=== PATIENT | male | born 1960 | race Caucasian/White ===

== ENCOUNTER 2023-08-16 16:32 | Emergency (ER) | payer BC, SELFPAY ==
[2023-08-16 16:53] LABS: #Basophils 0.1 thou/uL (0.0-0.2); #Lymphocytes 0.8 thou/uL (1.20-3.40); #Monocytes 0.7 thou/uL (0.11-0.59); #Neutrophils 3.1 thou/uL (1.40-6.50); %Basophils 2.1 % (0.0-1.0); %Eosinophils 0.5 % (0.0-10.0); %Lymphocytes 17.9 % (21.0-51.0); %Monocytes 13.9 % (0.0-10.0); %Neutrophils 65.7 % (42.0-75.0); Hematocrit 40.2 % (42.0-52.0); Hemoglobin 13.7 g/dL (14.0-18.0); Mean Corpuscular Hemoglobin 31.2 pg (27.0-31.0); Mean Corpuscular Volume 91.8 fl (78.0-98.0); Mean Platelet Volume 7.5 fL (7.4-10.4); Platelet Count 146 10x3/uL (130-400); RBC Distribution Width 11.5 % (11.5-14.5); Red Blood Cell (RBC) Count 4.38 mill/uL (4.70-6.10); White Blood Cell (WBC) Count 4.7 10x3/uL (4.8-10.8)
[2023-08-16 17:15] LABS: ALT (SGPT) 119 U/L (8-55); AST (SGOT) 103 U/L (5-34); Albumin 4.1 g/dL (3.4-4.8); Alcohol 281.2 mg/dL (Less than 10); Alkaline Phosphatase 112 U/L (40-110); Anion Gap 22 mmol/L (10-20); BUN (Urea Nitrogen) 4 mg/dL (8.4-25.7); Bilirubin, Total 0.7 mg/dL (0.2-1.2); CK (CPK) 108 U/L (30-200); Calc. Creatinine Clearance 0 mL/min (70-130); Calcium 8.6 mg/dL (7.8-10.44); Carbon Dioxide 17 mmol/L (23-31); Chloride 94 mmol/L (98-107); Estimated GFR 106; Globulin 3.6 g/dL (2.4-3.5); Glucose 88 mg/dL (80-115); Lipase 66 U/L (8-78); Magnesium 2.1 mg/dL (1.6-2.6); Protein, Total 7.7 g/dL (5.8-8.1); Sodium 129 mmol/L (136-145)
[2023-08-16 17:19] LABS: Bilirubin Negative (Negative); Blood, Urine Trace (Negative); Clarity Clear (Clear); Glucose, Urine (Dipstick) Negative (Negative); Ketone, Urine Negative (Negative); Leukocyte Negative (Negative); Nitrite Negative (Negative); Protein, Urine (Dipstick) Negative (Neg-Trace); Urobilinogen 0.2 mg/dL (Less than 2); pH, Urine 5.5 (5.0-9.0)
[2023-08-16 17:28] LABS: Bacteria/HPF None Seen HPF (None Seen); CAUTI Indications for Culture Alt mental st,lethar; RBC/HPF 0-3 HPF (0-3); Squamous Epithelial None Seen HPF (0-3); WBC/HPF None Seen HPF (0-3)
[2023-08-16 17:30] LABS: Urine Culture Reflex No No
[2023-08-16] MEDS ORDERED: Lorazepam 2 MG/ML VIAL ONE (19:11)
== END 2023-08-16 21:25 | disposition home or self-care (01) ==
LOC: BURERS 16:32
DX: F10.129 Alcohol abuse with intoxication, unspecified (principal); E87.1 Hypo-osmolality and hyponatremia; R00.0 Tachycardia, unspecified; R55 Syncope and collapse; R91.1 Solitary pulmonary nodule
CPT/HCPCS: 70450; 71045; 71046; 80053; 80307; 81001; 82550; 83690; 83735; 84484; 85025; 93005; 96361; 96374; J2060